=== PATIENT | male | born 1945 | race Asian ===

== ENCOUNTER 2016-11-27 16:02 | Emergency (ER) | payer MEDICARE, MEDICAID ==
[~2016-11-27] VITALS: Ht 180.3 cm; Wt 81.3 kg
[~2016-11-27 16:02] MED LIST: ALBU8.5H5 INH; ALLO100T30 PO; B/P MED; DILT240C2 PO; FLUT1AER INH; FLUT1DIS3 INH; Folic Acid PO; IPRA3AMP NPPB; LACT10SO28 PO; MAGN400T26 PO; MULT1TAB60 PO; NICO1PAT5 TD; PANT40TA5 PO; POLY17PO5 PO; PRED10TA PO; SERT50TA5 PO; THIA100T10 PO; TIOT18CA INH; TRAM50TA2 PO
[2016-11-27 21:02] VITALS: BP 130/63
== END 2016-11-27 21:04 | disposition home or self-care (01) ==
LOC: ED 20:58
DX: R33.9 Retention of urine, unspecified (principal); I10 Essential (primary) hypertension; J44.9 Chronic obstructive pulmonary disease, unspecified; E87.1 Hypo-osmolality and hyponatremia
CPT/HCPCS: 51702; 74000; 81001; 87077; 87086; 87186

== ENCOUNTER 2016-12-03 13:22 | Emergency (ER) | payer MEDICARE, MEDICAID ==
[~2016-12-03] VITALS: Ht 180.3 cm; Wt 82.0 kg
[2016-12-03] MEDS ORDERED: FURO40TA6 PO (13:32)
[2016-12-03] MEDS ORDERED: LISI-167 PO (13:34)
[2016-12-03] MEDS ORDERED: SODIUM CHLORIDE FLUSH 10ML SYR IVF ONE (14:00)
[2016-12-03 14:46] LABS: BLOOD UREA NITROGEN 7 mg/dL (7-18)
[2016-12-03 14:52] LABS: ASPARTATE AMINO TRANSFERASE 12 U/L (15-37)
[2016-12-03 14:53] LABS: IS PT STATUS REG ER OR PRE ER? YES
[2016-12-03] MEDS ORDERED: MAGNESIUM CITRATE 300ML ORAL SOL PO ONE (16:30)
[2016-12-03 16:57] VITALS: BP 134/68
== END 2016-12-03 17:06 | disposition home or self-care (01) ==
LOC: ED 16:42
DX: K59.00 Constipation, unspecified (principal); K64.4 Residual hemorrhoidal skin tags; J44.9 Chronic obstructive pulmonary disease, unspecified; I10 Essential (primary) hypertension; F17.210 Nicotine dependence, cigarettes, uncomplicated
CPT/HCPCS: 36415; 74022; 80053; 84484; 85025; 93005; 99285

== ENCOUNTER 2016-12-23 19:42 | Emergency (ER) | payer MEDICARE, MEDICAID ==
[~2016-12-23] VITALS: Ht 172.7 cm; Wt 81.8 kg
[~2016-12-23 19:42] MED LIST changes: +FURO40TA6 PO; +LISI-167 PO
[2016-12-23] MEDS ORDERED: SODIUM CHLORIDE FLUSH 10ML SYR IVF ONE (20:30)
[2016-12-23] MEDS ORDERED: FOLIC ACID 5 MG/ML IM ONE (20:30)
[2016-12-23] MEDS ORDERED: SODIUM CHLORIDE 0.9% 1,000ML IVBOLUS ONE (20:30)
[2016-12-23 20:46] LABS: BLOOD UREA NITROGEN 5 mg/dL (7-18)
[2016-12-23 20:49] LABS: ASPARTATE AMINO TRANSFERASE 15 U/L (15-37)
[2016-12-23] MEDS ORDERED: TAMS0.4C2 PO (21:07)
[2016-12-23] MEDS ORDERED: LINA145C PO (21:07)
[2016-12-23] MEDS ORDERED: DILT240C61 PO (21:07)
[2016-12-23] MEDS ORDERED: ALLO300T PO (21:07)
[2016-12-23] MEDS ORDERED: MULT1TAB50 PO (21:07)
[2016-12-23] MEDS ORDERED: HYDR28.311 TP (21:07)
[2016-12-23] MEDS ORDERED: POTA20PA8 PO (21:07)
[2016-12-23 22:17] VITALS: BP 136/60
== END 2016-12-24 00:09 | disposition home or self-care (01) ==
LOC: ED 23:56
DX: K56.49 Other impaction of intestine (principal); J44.9 Chronic obstructive pulmonary disease, unspecified; I10 Essential (primary) hypertension; E87.1 Hypo-osmolality and hyponatremia; F17.210 Nicotine dependence, cigarettes, uncomplicated
CPT/HCPCS: 36415; 74176; 80053; 83735; 85025; 96372

== ENCOUNTER 2017-01-02 05:53 | Inpatient (IN) | payer MEDICARE, MEDICAID ==
[~2017-01-02] VITALS: Ht 180.3 cm; Wt 90.3 kg
[~2017-01-02 05:53] MED LIST changes: +ALLO300T PO; +DILT240C61 PO; +HYDR28.311 TP; +LINA145C PO; +MULT1TAB50 PO; +POTA20PA8 PO; +TAMS0.4C2 PO
[2017-01-02] MEDS ORDERED: SODIUM CHLORIDE 0.9% 1,000ML IVBOLUS ONE (06:30)
[2017-01-02] MEDS ORDERED: SODIUM CHLORIDE FLUSH 10ML SYR IVF ONE (06:30)
[2017-01-02 06:42] LABS: ASPARTATE AMINO TRANSFERASE 16 U/L (15-37); BLOOD UREA NITROGEN 7 mg/dL (7-18)
[2017-01-02] MEDS ORDERED: immodium PO (06:50)
[2017-01-02] MEDS ORDERED: ALBU18HF INH (06:50)
[2017-01-02] MEDS ORDERED: MULT1TAB50 PO (06:50)
[2017-01-02] MEDS ORDERED: NA P133E2 PR (06:51)
[2017-01-02] MEDS ORDERED: SODIUM CHLORIDE 0.9%, 500ML IVBOLUS ONE (07:00)
[2017-01-02] MEDS ORDERED: SODIUM CHLORIDE 0.9% 1,000 ML IV SCH (08:45)
[2017-01-02] MEDS ORDERED: DOCUSATE 100 MG CAPSULE PO PRN (09:00)
[2017-01-02] MEDS ORDERED: ACETAMINOPHEN 325 MG TABLET PO PRN (09:00)
[2017-01-02] MEDS ORDERED: HYDROcodone/APAP 5/325 TABLET PO PRN (09:00)
[2017-01-02] MEDS ORDERED: ENOXAPARIN 40 MG/0.4 ML SQ SCH (09:00)
[2017-01-02] MEDS ORDERED: ONDANSETRON 2MG/ML, 2ML IVPush PRN (09:00)
[2017-01-02] MEDS ORDERED: LORazepam 2 MG/ML, 1ML IVPush PRN (09:00)
[2017-01-02] MEDS ORDERED: hydrALAzine 20 MG/ML, 1ML IVPush PRN (09:00)
[2017-01-02 09:05] VITALS: BP 96/63
[2017-01-02] MEDS ORDERED: [UNRECOGNIZED DRUG - REMARK] XX PRN (09:30)
[2017-01-02 09:58] LABS: TOTAL IRON BINDING CAPACITY 405 mcg/dL (250-450)
[2017-01-02] MEDS ORDERED: BUDE10.2 PO (10:00)
[2017-01-02] MEDS: SYMBICORT 160/4.5 INH SCH ×2 (10:26→20:40)
[2017-01-02] MEDS: NICOTINE 21 MG/24 HR PATCH.TD24 TD SCH (10:26)
[2017-01-02] MEDS: ALLOPURINOL 100 MG TABLET PO SCH (10:27)
[2017-01-02] MEDS: DILTIAZEM 240 MG CAP.ER.24H PO SCH (10:27)
[2017-01-02] MEDS: TAMSULOSIN 0.4 MG CAP.ER.24H PO SCH (10:27)
[2017-01-02] MEDS: MULTIVITAMINS/MINERALS TABLET PO SCH (10:28)
[2017-01-02] MEDS: POTASSIUM CHLORIDE 20 MEQ TAB.ER.PRT PO SCH (10:29)
[2017-01-02] MEDS: TEMPLATE NON-FORMULARY MED. (Linaclotide** (Linzess**) 145 MCG) PO SCH (11:50)
[2017-01-02 12:45] VITALS: BP 104/65
[2017-01-02] MEDS ORDERED: ALBUTEROL SULFATE 2.5 MG/3 ML ONE (14:01)
[2017-01-02] MEDS ORDERED: LIDOCAINE 4% TOPICAL SOLUTION 50 ML TP ONE (15:30)
[2017-01-02] MEDS ORDERED: LIDOCAINE GEL 2%, 5ML TP ONE (16:00)
[2017-01-02 19:09] VITALS: BP 126/65
[2017-01-03] MEDS: ALBUTEROL SULFATE 2.5 MG/3 ML NPPB PRN (00:37)
[2017-01-03 00:44] VITALS: BP 107/65
[2017-01-03 05:53] LABS: ASPARTATE AMINO TRANSFERASE 12 U/L (15-37); BLOOD UREA NITROGEN 11 mg/dL (7-18)
[2017-01-03 07:28] VITALS: BP 113/62
[2017-01-03] MEDS: SYMBICORT 160/4.5 INH SCH ×2 (09:00→21:00)
[2017-01-03] MEDS: TEMPLATE NON-FORMULARY MED. (Linaclotide** (Linzess**) 145 MCG) PO SCH (09:00)
[2017-01-03] MEDS: TAMSULOSIN 0.4 MG CAP.ER.24H PO SCH (09:46)
[2017-01-03] MEDS: POTASSIUM CHLORIDE 20 MEQ TAB.ER.PRT PO SCH (09:46)
[2017-01-03] MEDS: MULTIVITAMINS/MINERALS TABLET PO SCH (09:46)
[2017-01-03] MEDS: DILTIAZEM 240 MG CAP.ER.24H PO SCH (09:46)
[2017-01-03] MEDS: ALLOPURINOL 100 MG TABLET PO SCH (09:46)
[2017-01-03] MEDS: NICOTINE 21 MG/24 HR PATCH.TD24 TD SCH (09:47)
[2017-01-03] MEDS ORDERED: POLYETHYLENE GLYCOL 17 GM PACKET NG ONE (10:00)
[2017-01-03] MEDS ORDERED: POLYETHYLENE GLYCOL 17 GM PACKET PO ONE (12:00)
[2017-01-03 13:27] VITALS: BP 104/56
[2017-01-03] MEDS: AMPICILLIN 1 GM in SODIUM CHLORIDE 0.9% 50 ML IV SCH ×2 (15:28→21:38)
[2017-01-03] MEDS ORDERED: COLCHICINE 0.6 MG TABLET PO PRN (17:30)
[2017-01-03 19:25] VITALS: BP 105/58
[2017-01-03] MEDS ORDERED: ACETAMINOPHEN 325 MG TABLET PO PRN (21:30)
[2017-01-03] MEDS ORDERED: hydrALAzine 20 MG/ML, 1ML IVPush PRN (21:30)
[2017-01-03] MEDS ORDERED: ONDANSETRON 2MG/ML, 2ML IVPush PRN (21:30)
[2017-01-03] MEDS ORDERED: DOCUSATE 100 MG CAPSULE PO PRN (21:30)
[2017-01-04 01:42] VITALS: BP 131/64
[2017-01-04] MEDS: AMPICILLIN 1 GM in SODIUM CHLORIDE 0.9% 50 ML IV SCH ×4 (03:10→20:23)
[2017-01-04 08:16] VITALS: BP 117/72
[2017-01-04] MEDS: TEMPLATE NON-FORMULARY MED. (Linaclotide** (Linzess**) 145 MCG) PO SCH (09:00)
[2017-01-04] MEDS: SYMBICORT 160/4.5 INH SCH ×2 (09:00→20:24)
[2017-01-04] MEDS: TAMSULOSIN 0.4 MG CAP.ER.24H PO SCH (09:38)
[2017-01-04] MEDS: DILTIAZEM 240 MG CAP.ER.24H PO SCH (09:38)
[2017-01-04] MEDS: MULTIVITAMINS/MINERALS TABLET PO SCH (09:38)
[2017-01-04] MEDS: ALLOPURINOL 100 MG TABLET PO SCH (09:38)
[2017-01-04] MEDS: POTASSIUM CHLORIDE 20 MEQ TAB.ER.PRT PO SCH (09:38)
[2017-01-04] MEDS: NICOTINE 21 MG/24 HR PATCH.TD24 TD SCH (09:39)
[2017-01-04] MEDS: ALBUTEROL SULFATE 2.5 MG/3 ML NPPB PRN (13:21)
[2017-01-04] MEDS: POLYETHYLENE GLYCOL 17 GM PACKET PO SCH (13:29)
[2017-01-04 15:20] VITALS: BP 113/68
[2017-01-04 20:00] VITALS: BP 124/64
[2017-01-04] MEDS: DOCUSATE 100 MG CAPSULE PO SCH (20:23)
[2017-01-04] MEDS: DIPHENHYDRAMINE 25 MG CAPSULE PO PRN (23:57)
[2017-01-05 00:02] VITALS: BP 129/65
[2017-01-05] MEDS: AMPICILLIN 1 GM in SODIUM CHLORIDE 0.9% 50 ML IV SCH ×5 (02:57→20:37)
[2017-01-05 06:00] LABS: ASPARTATE AMINO TRANSFERASE 9 U/L (15-37); BLOOD UREA NITROGEN 7 mg/dL (7-18)
[2017-01-05 07:06] VITALS: BP 132/64
[2017-01-05] MEDS: DILTIAZEM 240 MG CAP.ER.24H PO SCH (09:27)
[2017-01-05] MEDS: SYMBICORT 160/4.5 INH SCH ×2 (09:27→20:37)
[2017-01-05] MEDS: POTASSIUM CHLORIDE 20 MEQ TAB.ER.PRT PO SCH (09:28)
[2017-01-05] MEDS: MULTIVITAMINS/MINERALS TABLET PO SCH (09:28)
[2017-01-05] MEDS: NICOTINE 21 MG/24 HR PATCH.TD24 TD SCH (09:28)
[2017-01-05] MEDS: ALLOPURINOL 100 MG TABLET PO SCH (09:28)
[2017-01-05] MEDS: DOCUSATE 100 MG CAPSULE PO SCH ×2 (09:28→20:37)
[2017-01-05] MEDS: POLYETHYLENE GLYCOL 17 GM PACKET PO SCH (09:28)
[2017-01-05] MEDS: TAMSULOSIN 0.4 MG CAP.ER.24H PO SCH (09:28)
[2017-01-05] MEDS: TEMPLATE NON-FORMULARY MED. (Linaclotide** (Linzess**) 145 MCG) PO SCH (09:29)
[2017-01-05] MEDS ORDERED: MAGNESIUM CITRATE 300ML ORAL SOL PO ONE (15:00)
[2017-01-05 15:09] VITALS: BP 107/67
[2017-01-05 20:10] VITALS: BP 133/66
[2017-01-06] MEDS: AMPICILLIN 1 GM in SODIUM CHLORIDE 0.9% 50 ML IV SCH ×4 (03:21→21:16)
[2017-01-06 03:40] VITALS: BP 152/74
[2017-01-06] MEDS: SYMBICORT 160/4.5 INH SCH ×2 (08:22→21:15)
[2017-01-06] MEDS: NICOTINE 21 MG/24 HR PATCH.TD24 TD SCH (08:24)
[2017-01-06] MEDS: MULTIVITAMINS/MINERALS TABLET PO SCH (08:24)
[2017-01-06] MEDS: TAMSULOSIN 0.4 MG CAP.ER.24H PO SCH (08:25)
[2017-01-06] MEDS: ALLOPURINOL 100 MG TABLET PO SCH (08:25)
[2017-01-06] MEDS: DILTIAZEM 240 MG CAP.ER.24H PO SCH (08:26)
[2017-01-06] MEDS: POLYETHYLENE GLYCOL 17 GM PACKET PO SCH ×3 (08:26→21:16)
[2017-01-06] MEDS: DOCUSATE 100 MG CAPSULE PO SCH ×2 (08:26→21:16)
[2017-01-06] MEDS: TEMPLATE NON-FORMULARY MED. (Linaclotide** (Linzess**) 145 MCG) PO SCH (08:29)
[2017-01-06 09:32] VITALS: BP 109/55
[2017-01-06 13:15] VITALS: BP 132/74
[2017-01-06] MEDS ORDERED: BISACODYL 10 MG SUPP PR PRN (15:00)
[2017-01-06] MEDS: METHYLNALTREXONE 12 MG/0.6 ML SQ SCH (15:28)
[2017-01-06] MEDS ORDERED: PINK LADY ENEMA 1,000 ML PR ONE (17:30)
[2017-01-06 19:36] VITALS: BP 128/67
[2017-01-07] MEDS: DIPHENHYDRAMINE 25 MG CAPSULE PO PRN (01:58)
[2017-01-07] MEDS: AMPICILLIN 1 GM in SODIUM CHLORIDE 0.9% 50 ML IV SCH ×2 (02:39→09:44)
[2017-01-07 03:14] VITALS: BP 147/72
[2017-01-07 08:21] VITALS: BP 140/76
[2017-01-07] MEDS: TEMPLATE NON-FORMULARY MED. (Linaclotide** (Linzess**) 145 MCG) PO SCH (09:00)
[2017-01-07] MEDS: SYMBICORT 160/4.5 INH SCH ×2 (09:00→20:54)
[2017-01-07] MEDS: DILTIAZEM 240 MG CAP.ER.24H PO SCH (09:46)
[2017-01-07] MEDS: TAMSULOSIN 0.4 MG CAP.ER.24H PO SCH (09:46)
[2017-01-07] MEDS: DOCUSATE 100 MG CAPSULE PO SCH ×2 (09:46→20:55)
[2017-01-07] MEDS: POLYETHYLENE GLYCOL 17 GM PACKET PO SCH ×5 (09:46→21:00)
[2017-01-07] MEDS: ALLOPURINOL 100 MG TABLET PO SCH (09:47)
[2017-01-07] MEDS: MULTIVITAMINS/MINERALS TABLET PO SCH (09:47)
[2017-01-07] MEDS: NICOTINE 21 MG/24 HR PATCH.TD24 TD SCH (09:47)
[2017-01-07 13:39] VITALS: BP 110/65
[2017-01-07] MEDS ORDERED: SIMETHICONE 80 MG CHEW TAB PO PRN (15:00)
[2017-01-07] MEDS: AMPICILLIN 500MG CAPSULE PO SCH ×2 (16:22→20:55)
[2017-01-07 20:50] VITALS: BP 142/60
[2017-01-07] MEDS: SENNA/DOCUSATE TABLET PO SCH (20:55)
[2017-01-08 02:30] VITALS: BP 147/74
[2017-01-08] MEDS: AMPICILLIN 500MG CAPSULE PO SCH ×4 (06:07→20:59)
[2017-01-08 07:53] VITALS: BP 152/74
[2017-01-08] MEDS: NICOTINE 21 MG/24 HR PATCH.TD24 TD SCH (08:30)
[2017-01-08] MEDS: MULTIVITAMINS/MINERALS TABLET PO SCH (08:30)
[2017-01-08] MEDS: DILTIAZEM 240 MG CAP.ER.24H PO SCH (08:31)
[2017-01-08] MEDS: DOCUSATE 100 MG CAPSULE PO SCH ×2 (08:32→20:59)
[2017-01-08] MEDS: TAMSULOSIN 0.4 MG CAP.ER.24H PO SCH (08:32)
[2017-01-08] MEDS: ALLOPURINOL 100 MG TABLET PO SCH (08:32)
[2017-01-08] MEDS: SYMBICORT 160/4.5 INH SCH ×2 (08:35→21:00)
[2017-01-08] MEDS: TEMPLATE NON-FORMULARY MED. (Linaclotide** (Linzess**) 145 MCG) PO SCH (08:35)
[2017-01-08] MEDS: SENNA/DOCUSATE TABLET PO SCH ×2 (08:35→20:59)
[2017-01-08 13:15] VITALS: BP 133/61
[2017-01-08] MEDS: POLYETHYLENE GLYCOL 17 GM PACKET PO SCH ×2 (15:37→20:59)
[2017-01-08] MEDS: METHYLNALTREXONE 12 MG/0.6 ML SQ SCH (15:37)
[2017-01-08 19:49] VITALS: BP 145/73
[2017-01-08] MEDS: DIPHENHYDRAMINE 25 MG CAPSULE PO PRN (23:19)
[2017-01-09 02:10] VITALS: BP 154/81
[2017-01-09] MEDS: AMPICILLIN 500MG CAPSULE PO SCH ×2 (05:41→12:13)
[2017-01-09] MEDS ORDERED: SIME80TA16 PO (08:06)
[2017-01-09] MEDS ORDERED: POLY17PO5 PO (08:06)
[2017-01-09] MEDS ORDERED: BISA10SU65 PR (08:06)
[2017-01-09] MEDS ORDERED: NICO1PAT5 TD (08:06)
[2017-01-09] MEDS ORDERED: AMPI500C2 PO (08:06)
[2017-01-09] MEDS ORDERED: SENN1TAB7 PO (08:06)
[2017-01-09] MEDS ORDERED: DOCU-30 PO (08:06)
[2017-01-09] MEDS ORDERED: HYDR-3240 PO (08:06)
[2017-01-09 08:13] VITALS: BP 152/73
[2017-01-09] MEDS: TEMPLATE NON-FORMULARY MED. (Linaclotide** (Linzess**) 145 MCG) PO SCH (09:00)
[2017-01-09] MEDS: SYMBICORT 160/4.5 INH SCH (09:00)
[2017-01-09] MEDS: DOCUSATE 100 MG CAPSULE PO SCH (09:16)
[2017-01-09] MEDS: MULTIVITAMINS/MINERALS TABLET PO SCH (09:16)
[2017-01-09] MEDS: TAMSULOSIN 0.4 MG CAP.ER.24H PO SCH (09:17)
[2017-01-09] MEDS: DILTIAZEM 240 MG CAP.ER.24H PO SCH (09:17)
[2017-01-09] MEDS: SENNA/DOCUSATE TABLET PO SCH (09:18)
[2017-01-09] MEDS: NICOTINE 21 MG/24 HR PATCH.TD24 TD SCH (09:19)
[2017-01-09] MEDS: ALLOPURINOL 100 MG TABLET PO SCH (09:19)
[2017-01-09] MEDS: POLYETHYLENE GLYCOL 17 GM PACKET PO SCH (09:20)
== END 2017-01-09 12:25 | DRG 682 ==
LOC: ED 06:12 → EDIP 07:49 → 3NE 08:54
PROVIDERS: ADMIT Family Medicine
PROC: 0T9B70Z Drainage of Bladder with Drainage Device, Via Natural or Artificial Opening (ICD-10-PCS; principal; 2017-01-02)
DX: N17.9 Acute kidney failure, unspecified (principal); E43 Unspecified severe protein-calorie malnutrition; N39.0 Urinary tract infection, site not specified; E87.1 Hypo-osmolality and hyponatremia; K58.0 Irritable bowel syndrome with diarrhea; K58.1 Irritable bowel syndrome with constipation; B95.2 Enterococcus as the cause of diseases classified elsewhere; E11.9 Type 2 diabetes mellitus without complications; E86.0 Dehydration; F17.200 Nicotine dependence, unspecified, uncomplicated; G89.29 Other chronic pain; I11.9 Hypertensive heart disease without heart failure; I48.91 Unspecified atrial fibrillation; J44.9 Chronic obstructive pulmonary disease, unspecified; K26.9 Duodenal ulcer, unspecified as acute or chronic, without hemorrhage or perforation; K59.00 Constipation, unspecified; M54.9 Dorsalgia, unspecified; M10.9 Gout, unspecified; F10.10 Alcohol abuse, uncomplicated; M85.80 Other specified disorders of bone density and structure, unspecified site; N40.1 Benign prostatic hyperplasia with lower urinary tract symptoms; R62.7 Adult failure to thrive; Z82.0 Family history of epilepsy and other diseases of the nervous system; Z86.19 Personal history of other infectious and parasitic diseases; Z90.79 Acquired absence of other genital organ(s); Z71.6 Tobacco abuse counseling; Z79.899 Other long term (current) drug therapy; Z68.27 Body mass index [BMI] 27.0-27.9, adult
CPT/HCPCS: 36415; 74022; 80053; 81001; 82607; 82705; 82746; 83540; 83550; 83735; 84100; 84443; 85025; 85610; 87046; 87077; 87086; 87186; 87324; 87328; 87329; 87899; 89055; 93005; 94640; 99285; J0290; J7613; J7030; J7040; Q0163